=== PATIENT | female | born 1980 | race African-American/Black ===

== ENCOUNTER 2022-01-14 07:30 | Day surgery (SDC) | payer OTHER ==
[2022-01-13 12:55] VITALS: BMI 30.7
[2022-01-14] MEDS ORDERED: SUCCINYLCHOLINE CHLORIDE 200 MG/10 ML SYRINGE ONE (09:01)
[2022-01-14] MEDS ORDERED: PROPOFOL 20 ML ONE ×2 (09:01)
[2022-01-14] MEDS ORDERED: MIDAZOLAM HCL 2 MG/2 ML SINGLE DOSE VIAL ONE (09:01)
[2022-01-14] MEDS ORDERED: ONDANSETRON 4 MG/2 ML VIAL ONE ×2 (09:25→10:45)
[2022-01-14] MEDS ORDERED: KETOROLAC TROMETHAMINE 30 MG/1 ML VIAL ONE (09:25)
[2022-01-14] MEDS ORDERED: DEXAMETHASONE SOD PHOSPHATE 4 MG/1 ML VIAL ONE (09:25)
[2022-01-14] MEDS ORDERED: ceFAZolin SODIUM 1 GM VIAL ONE (09:25)
[2022-01-14] MEDS ORDERED: SEVOFLURANE 250 ML BTL ONE (09:40)
[2022-01-14] MEDS ORDERED: oxyCODONE HCL 5 MG TABLET PO PRN ×2 (10:38)
[2022-01-14] MEDS ORDERED: ONDANSETRON 4 MG/2 ML VIAL IVPUSH PRN (10:38)
[2022-01-14] MEDS ORDERED: oxyCODONE HCL 5 MG TABLET ONE (12:15)
[2022-01-14 12:52] VITALS: BP 127/76; PULSE 80; TEMP 98
== END 2022-01-14 12:45 | disposition home or self-care (01) ==
LOC: FASU 07:30 → EDBD 09:30 → FASU 12:45
PROVIDERS: ATTEND Orthopaedic Surgery Hand Surgery
PROC: 0MQ80ZZ Repair Left Hand Bursa and Ligament, Open Approach (ICD-10-PCS; principal; 2022-01-14 09:32)
DX: S63.642A Sprain of metacarpophalangeal joint of left thumb, initial encounter (principal); X58.XXXA Exposure to other specified factors, initial encounter; Y93.9 Activity, unspecified; Y92.9 Unspecified place or not applicable
CPT/HCPCS: 84703; 94760